=== PATIENT | female | born 1995 | race Caucasian/White ===

== ENCOUNTER 2017-12-04 14:13 | Emergency (ER) | payer BC ==
[~2017-12-04] VITALS: Ht 152.4 cm; Wt 70.3 kg
[~2017-12-04 14:13] MED LIST: no meds
[2017-12-04 14:39] VITALS: BP_SYST 141
[2017-12-04] MEDS ORDERED: NACL 0.9% 1,000 ML IV ONE ×2 (15:38→18:30)
[2017-12-04] MEDS ORDERED: ACETAMINOPHEN 500 MG TABLET ONE (15:40)
[2017-12-04] MEDS ORDERED: KETOROLAC TROMETHAMINE 30 MG VIAL ONE (15:40)
[2017-12-04] MEDS ORDERED: ONDANSETRON HCL 4 MG/2 ML VIAL ONE (15:40)
[2017-12-04] MEDS ORDERED: ACETAMINOPHEN 500 MG TABLET PO ONE (15:45)
[2017-12-04] MEDS ORDERED: ONDANSETRON HCL 4 MG/2 ML VIAL IVP ONE (15:45)
[2017-12-04] MEDS ORDERED: KETOROLAC TROMETHAMINE 30 MG VIAL IVP ONE (15:45)
[2017-12-04 16:03] LABS: BASOPHILS % (AUTO) 0.1 % (0.0-2.0); EOSINOPHILS % (AUTO) 0.1 % (0.0-4.0); HEMOGLOBIN 12.6 g/dL (12.0-16.0); LYMPHOCYTES % (AUTO) 7.4 % (20.5-51.5); MEAN CORPUSCULAR HEMOGLOBIN 30 pg (27-31); MEAN CORPUSCULAR HGB CONC 32 % (32-36); MEAN CORPUSCULAR VOLUME 94 fL (79.0-98.0); MONOCYTES # (AUTO) 1.9 K/uL (0.0-1.0); MONOCYTES % (AUTO) 13.3 % (1.7-9.3); NEUTROPHILS % (AUTO) 79.1 % (40.0-70.0); PLATELET COUNT (AUTO) 225 K/uL (130-430); RED BLOOD CELL COUNT(AUTO) 4.15 MIL/uL (4.2-6.2); RED CELL DISTRIBUTION WIDTH 11.1 % (9.0-15.0); WHITE BLOOD COUNT (AUTO) 13.9 K/uL (4.8-10.8)
[2017-12-04 16:07] LABS: CREATININE 0.8 mg/dL (0.55-1.30); POTASSIUM 3.5 mmol/L (3.5-5.1)
[2017-12-04 16:11] LABS: ALBUMIN 3.3 g/dL (3.4-4.8); PROTHROMBIN TIME 10.2 SECS (9.5-12.5); TOTAL BILIRUBIN 0.3 mg/dL (0.0-1.0)
[2017-12-04 17:19] LABS: BILIRUBIN,URINE NEGATIVE (NEGATIVE); BLOOD, URINE 3+ (NEGATIVE); COLOR,URINE YELLOW (YELLOW); GLUCOSE,URINE NEGATIVE (NEGATIVE); KETONES,URINE 3+ (NEGATIVE); LEUKOCYTE ESTERASE ,URINE 3+ (NEGATIVE); NITRITE, URINE POSITIVE (NEGATIVE); PROTEIN URINE 1+ (NEGATIVE); UROBILINOGEN,URINE 0.2 (0.2-1.0)
[2017-12-04 17:23] LABS: CLARITY/URINE HAZY (CLEAR)
[2017-12-04 17:30] LABS: BACTERIA,URINE MODERATE /HPF (None Seen); MUCUS,URINE None Seen /LPF (None Seen); WBC,URINE 20-50 /HPF (0-3)
[2017-12-04] MEDS ORDERED: cefTRIAXone 2 GM VIAL ONE (18:33)
[2017-12-04 19:19] VITALS: BP_SYST 113
[2017-12-05] MEDS ORDERED: SULF1TAB48 PO (07:47)
== END 2017-12-04 19:19 | disposition home or self-care (01) ==
LOC: SED 14:13
DX: N12 Tubulo-interstitial nephritis, not specified as acute or chronic (principal); R03.0 Elevated blood-pressure reading, without diagnosis of hypertension
CPT/HCPCS: 36415; 80053; 81000; 82550; 83690; 85025; 85610; 85730; 87086; 87186; 96361; 96365; 96375; 99284; J0696; J1885; J2405; J7030; J7060

== ENCOUNTER 2017-12-05 05:41 | Inpatient (IN) | payer BC ==
[~2017-12-05] VITALS: Ht 152.4 cm; Wt 76.2 kg
[2017-12-05 05:52] VITALS: BP_SYST 130
[2017-12-05] MEDS ORDERED: NACL 0.9% 1,000 ML IV ONE (05:54)
[2017-12-05] MEDS ORDERED: cefTRIAXone 1 GM in LIDOCAINE 1%, 20 ML MDV 2.1 ML IM ONE (06:00)
[2017-12-05] MEDS ORDERED: KETOROLAC TROMETHAMINE 30 MG VIAL IVP ONE (06:00)
[2017-12-05] MEDS ORDERED: cefTRIAXone 1 GM IVPB PREMIX 50 ML IV ONE ×2 (06:30→10:00)
[2017-12-05 06:45] LABS: HEMATOCRIT 36.1 % (36-48); HEMOGLOBIN 12.1 g/dL (12.0-16.0); MEAN CORPUSCULAR HEMOGLOBIN 32 pg (27-31); MEAN CORPUSCULAR HGB CONC 34 % (32-36); MEAN CORPUSCULAR VOLUME 94 fL (79.0-98.0); PLATELET COUNT (AUTO) 197 K/uL (130-430); RED BLOOD CELL COUNT(AUTO) 3.82 MIL/uL (4.2-6.2); RED CELL DISTRIBUTION WIDTH 11.6 % (9.0-15.0); WHITE BLOOD COUNT (AUTO) 12.1 K/uL (4.8-10.8)
[2017-12-05 06:55] LABS: BILIRUBIN,URINE NEGATIVE (NEGATIVE); BLOOD, URINE 3+ (NEGATIVE); CLARITY/URINE SL HAZY (CLEAR); COLOR,URINE YELLOW (YELLOW); GLUCOSE,URINE NEGATIVE (NEGATIVE); KETONES,URINE 1+ (NEGATIVE); LEUKOCYTE ESTERASE ,URINE TRACE (NEGATIVE); NITRITE, URINE NEGATIVE (NEGATIVE); PROTEIN URINE 1+ (NEGATIVE); UROBILINOGEN,URINE 0.2 (0.2-1.0)
[2017-12-05 07:18] LABS: BACTERIA,URINE FEW /HPF (None Seen); MUCUS,URINE None Seen /LPF (None Seen)
[2017-12-05 07:23] LABS: ATYPICAL LYMPHOCYTES % 0 % (0-0); BAND % (MANUAL) 3 % (0-6); BASOPHILS % (MANUAL) 0 % (0-2); EOSINOPHILS % (MANUAL) 1 % (0-7); LYMPHOCYTES % (MANUAL) 12 % (20-46); MONOCYTES % (MANUAL) 16 % (0-11)
[2017-12-05 07:28] LABS: CALCIUM 8.2 mg/dL (8.4-11.0); CREATININE 0.63 mg/dL (0.55-1.30); POTASSIUM 3.4 mmol/L (3.5-5.1)
[2017-12-05 07:31] LABS: ALBUMIN 2.5 g/dL (3.4-4.8); TOTAL BILIRUBIN 0.2 mg/dL (0.0-1.0)
[2017-12-05] MEDS ORDERED: SULF1TAB48 PO (07:47)
[2017-12-05 08:15] VITALS: BP_SYST 102
[2017-12-05 08:19] VITALS: BP_SYST 113
[2017-12-05] MEDS: NACL 0.9% 1,000 ML IV SCH ×3 (09:07→20:40)
[2017-12-05 10:33] LABS: HCG,QUAL RESULT NEGATIVE (NEGATIVE)
[2017-12-05 13:29] VITALS: BP_SYST 105
[2017-12-05] MEDS: KETOROLAC TROMETHAMINE 15 MG VIAL IVP PRN ×2 (13:57→21:59)
[2017-12-05] MEDS ORDERED: HYDROcodone/ACETAMIN 5-325 MG TAB (NORCO/ VICODIN) PO ONE (14:00)
[2017-12-05] MEDS ORDERED: ACETAMINOPHEN 325 MG TABLET PO PRN (14:00)
[2017-12-05 16:17] VITALS: BP_SYST 117
[2017-12-05] MEDS: HYDROcodone/ACETAMIN 5-325 MG TAB (NORCO/ VICODIN) PO PRN (17:52)
[2017-12-05 20:00] VITALS: BP_SYST 116
[2017-12-06] VITALS: BP_SYST 96
[2017-12-06] MEDS: HYDROcodone/ACETAMIN 5-325 MG TAB (NORCO/ VICODIN) PO PRN ×3 (02:18→23:16)
[2017-12-06] MEDS: NACL 0.9% 1,000 ML IV SCH ×2 (04:38→14:13)
[2017-12-06] MEDS: KETOROLAC TROMETHAMINE 15 MG VIAL IVP PRN ×3 (04:43→17:31)
[2017-12-06 06:35] LABS: BASOPHILS % (AUTO) 0.5 % (0.0-2.0); EOSINOPHILS # (AUTO) 0.1 K/uL (0.0-0.4); EOSINOPHILS % (AUTO) 1.6 % (0.0-4.0); HEMATOCRIT 30.6 % (36-48); HEMOGLOBIN 10.4 g/dL (12.0-16.0); LYMPHOCYTES # (AUTO) 1.9 K/uL (1.0-5.5); LYMPHOCYTES % (AUTO) 25.2 % (20.5-51.5); MEAN CORPUSCULAR HEMOGLOBIN 32 pg (27-31); MEAN CORPUSCULAR HGB CONC 34 % (32-36); MEAN CORPUSCULAR VOLUME 94 fL (79.0-98.0); MONOCYTES # (AUTO) 1.1 K/uL (0.0-1.0); MONOCYTES % (AUTO) 14.6 % (1.7-9.3); NEUTROPHILS # (AUTO) 4.4 K/uL (1.8-7.7); NEUTROPHILS % (AUTO) 58.1 % (40.0-70.0); PLATELET COUNT (AUTO) 206 K/uL (130-430); RED BLOOD CELL COUNT(AUTO) 3.27 MIL/uL (4.2-6.2); RED CELL DISTRIBUTION WIDTH 11.4 % (9.0-15.0)
[2017-12-06 06:42] LABS: WHITE BLOOD COUNT (AUTO) 7.5 K/uL (4.8-10.8)
[2017-12-06 06:47] LABS: ALBUMIN 2.2 g/dL (3.4-4.8); CALCIUM 8.5 mg/dL (8.4-11.0); CREATININE 0.71 mg/dL (0.55-1.30); POTASSIUM 3.8 mmol/L (3.5-5.1); TOTAL BILIRUBIN 0.2 mg/dL (0.0-1.0)
[2017-12-06 08:10] VITALS: BP_SYST 116
[2017-12-06] MEDS ORDERED: cefTRIAXone 1 GM IVPB PREMIX 50 ML IV SCH (09:00)
[2017-12-06] MEDS: CIPROFLOXACIN LACT 400 MG/D5W 200 ML IV SCH ×2 (12:00→21:51)
[2017-12-06 12:07] VITALS: BP_SYST 121
[2017-12-06 16:19] VITALS: BP_SYST 138
[2017-12-06 20:30] VITALS: BP_SYST 130
[2017-12-07] MEDS: NACL 0.9% 1,000 ML IV SCH ×2 (01:40→09:07)
[2017-12-07] MEDS: KETOROLAC TROMETHAMINE 15 MG VIAL IVP PRN (01:45)
[2017-12-07 02:42] VITALS: BP_SYST 118
[2017-12-07 08:15] VITALS: BP_SYST 128
[2017-12-07] MEDS: CIPROFLOXACIN LACT 400 MG/D5W 200 ML IV SCH (09:06)
[2017-12-07] MEDS: HYDROcodone/ACETAMIN 5-325 MG TAB (NORCO/ VICODIN) PO PRN (10:55)
[2017-12-07] MEDS ORDERED: CIPR-211 PO (11:37)
[2017-12-07 11:46] VITALS: BP_SYST 132
[2017-12-07 12:02] VITALS: BP_SYST 119
== END 2017-12-07 13:30 | disposition home or self-care (01) | DRG 690 ==
LOC: SED 05:41 → SMU 08:03
PROVIDERS: ADMIT Internal Medicine Hospice and Palliative Medicine; ATTEND Internal Medicine Hospice and Palliative Medicine
DX: N12 Tubulo-interstitial nephritis, not specified as acute or chronic (principal)
CPT/HCPCS: 36415; 80053; 81000-TC; 83605; 84703; 85007; 85025; 85027; 87040-TC; 87086; 96365; 96375; 99285; J0696; J0744; J1885; J7030